=== PATIENT | female | born 1945 | race Caucasian/White ===

== ENCOUNTER 2018-02-15 06:22 | Day surgery (SDC) | payer OTHER, MEDICAID ==
[~2018-02-15] VITALS: Ht 152.4 cm; Wt 48.5 kg
[2018-02-15] MEDS ORDERED: MIDAZOLAM 2 MG/2 ML VIAL ONE (08:07)
[2018-02-15] MEDS ORDERED: fentaNYL 0.05 MG/ML VIAL ONE (08:07)
[2018-02-15] MEDS ORDERED: LIDOCAINE 2% 100 MG/5 ML UJET TP ONE (08:08)
[2018-02-15] MEDS ORDERED: fentaNYL 0.05 MG/ML VIAL IVP ONE (10:35)
[2018-02-15] MEDS ORDERED: MIDAZOLAM 2 MG/2 ML VIAL IVP ONE (10:35)
== END 2018-02-15 10:59 | disposition home or self-care (01) ==
LOC: MDS 06:22 → MMU 06:23 → MDS 10:59
PROVIDERS: ATTEND Internal Medicine Gastroenterology
DX: D12.8 Benign neoplasm of rectum (principal); I10 Essential (primary) hypertension; J44.9 Chronic obstructive pulmonary disease, unspecified; M19.90 Unspecified osteoarthritis, unspecified site; K21.9 Gastro-esophageal reflux disease without esophagitis; E78.00 Pure hypercholesterolemia, unspecified; F17.210 Nicotine dependence, cigarettes, uncomplicated; Z79.899 Other long term (current) drug therapy
CPT/HCPCS: 45385; J2250; J3010